=== PATIENT | female | born 1965 | race Caucasian/White ===

== ENCOUNTER 2019-02-06 10:08 | Day surgery (SDC) | payer OTHER ==
[~2019-02-06] VITALS: Ht 162.6 cm; Wt 77.1 kg
[2019-02-06] MEDS ORDERED: fentaNYL 0.05 MG/ML VIAL ONE (12:21)
[2019-02-06] MEDS ORDERED: LIDOCAINE 2% 100 MG/5 ML UJET TP ONE (12:21)
[2019-02-06] MEDS ORDERED: MIDAZOLAM 2 MG/2 ML VIAL ONE (12:21)
[2019-02-06] MEDS ORDERED: fentaNYL 0.05 MG/ML VIAL IVP ONE (13:10)
== END 2019-02-06 13:12 | disposition home or self-care (01) ==
LOC: MDS 10:08 → MMU 10:08 → MDS 13:12
PROVIDERS: ATTEND Internal Medicine Gastroenterology
DX: Z12.11 Encounter for screening for malignant neoplasm of colon (principal); D12.4 Benign neoplasm of descending colon; F17.210 Nicotine dependence, cigarettes, uncomplicated; E66.9 Obesity, unspecified; Z72.89 Other problems related to lifestyle; Z68.29 Body mass index [BMI] 29.0-29.9, adult
CPT/HCPCS: 45385; J3010; J2250